=== PATIENT | female | born 2000 | race Hispanic/Latino ===

== ENCOUNTER 2021-09-22 17:18 | Emergency (ER) | payer OTHER, SELFPAY ==
[2021-09-22 19:07] LABS: Absolute Lymphocytes (CBC) 1.7 K/uL (0.7-4.9); Hematocrit 33.9 % (36.0-45.0); MPV 8.1 fL (7.6-11.3); RBC Red Blood Cell Count 4.54 M/uL (3.86-4.86)
[2021-09-22 19:12] LABS: Urine Blood Trace-intact (Negative); Urine Glucose Negative (Negative); Urine Protein Negative (Negative); Urine Specific Gravity >=1.030 (1.005-1.030)
--- NOTE | 2021-09-22 19:14 | RAD REPORT ---
EXAM DESCRIPTION: [place] Single View09/22/2021 7:02 pm CLINICAL HISTORY: Chest pain COMPARISON: none FINDINGS: The lungs appear clear of acute infiltrate. The heart is normal size IMPRESSION: No acute abnormalities displayed
[2021-09-22] MEDS ORDERED: NA CHLORIDE 0.9% 500 ML ONE (19:30)
[2021-09-22 19:45] LABS: Protime INR 1.02
[2021-09-22 19:54] LABS: ALT/SGPT 20 U/L (12-78); AST/SGOT 19 U/L (15-37); Alkaline Phosphatase 61 U/L (45-117); BUN Blood Urea Nitrogen 10 mg/dL (7-18); Bicarbonate 28 mmol/L (21-32); Bilirubin Total 0.2 mg/dL (0.2-1.0); Glucose Level 93 mg/dL (74-106); Magnesium 1.8 mg/dL (1.8-2.4); NT PRO-BNP 71 pg/mL (<125); Potassium 3.2 mmol/L (3.5-5.1); Protein, Total 8.1 g/dL (6.4-8.2); Sodium Level 137 mmol/L (136-145)
[2021-09-22 19:56] LABS: Bilirubin Direct < 0.1 mg/dL (0-0.2)
[2021-09-22 20:30] LABS: Urine Specific Gravity/Preg >1.030 (1.005-1.030)
[2021-09-22 20:57] LABS: Troponin High Sensitivity < 3.00 pg/mL (<58.9)
--- NOTE | 2021-09-22 20:59 | ER ---
Nurse's Notes [facility] Name: Denia Mathew Age: 21 yrs Sex: Female : 2000 Arrival Date: 09/22/2021 Time: 17:21 Bed 8 Private MD: Diagnosis: Chest pain, unspecified Presentation: 09/22 17:45 Chief complaint: Patient states: she started experiencing chest pain accompanied by ap3 dizziness around 1630 this afternoon. Patient also states she was feeling faint at the time this occurred. Patient denies chest pain and dizziness at this time. Coronavirus screen: At this time, the client does not indicate any symptoms associated with coronavirus-19. Ebola Screen: No symptoms or risks identified at this time. Initial Sepsis Screen: Does the patient meet any 2 criteria? No. Patient's initial sepsis screen is negative. Does the patient have a suspected source of infection? No. Patient's initial sepsis screen is negative. Risk Assessment: Do you want to hurt yourself or someone else? Patient reports no desire to harm self or others. Onset of symptoms was September 22, 2021 at 16:30. 17:45 Method Of Arrival: Wheelchair ap3 17:45 Acuity: STEVAN 3 ap3 Triage Assessment: 17:48 General: Appears in no apparent distress. Behavior is calm, cooperative. Pain: Denies ap3 pain. Neuro: Level of Consciousness is awake, alert, obeys commands, Oriented to person, place, time, situation, Appropriate for age. Cardiovascular: Patient's skin is warm and dry. Respiratory: Airway is patent Respiratory effort is even, unlabored, Respiratory pattern is regular, symmetrical. 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 - Social history:: Smoking status: Patient denies any tobacco usage or history of. Screenin:49 Abuse screen: Denies threats or abuse. Nutritional screening: No deficits noted. ap3 Tuberculosis screening: No symptoms or risk factors identified. Fall Risk None identified. No fall in past 12 months (0 pts). Assessment: 17:50 Pain: Denies pain. Pain began suddenly, an hour and a half ago, but has since resolved. ap3 18:07 Reassessment: No changes from previously documented assessment. Patient is alert, jh6 oriented x 3, equal unlabored respirations, skin warm/dry/pink. Patient denies pain at this time. Patient states feeling better. General: Appears in no apparent distress. Behavior is calm, cooperative, states that she was at work when she started having sharp chest pain and tingling to face and lips. pt states that s/s are resolve at this time. . 19:28 General: Reports " I am feeling a lot better now than when I first came in." Patient tw5 denies chest pain at this time. General: Reports " I thought I was suppose to get an IV fluids.". Neuro: Level of Consciousness is awake, alert, obeys commands, Oriented to person, place, time, situation. Cardiovascular: Patient's skin is warm and dry. Respiratory: Airway is patent Trachea midline Respiratory effort is even, unlabored. 20:21 Reassessment: Patient appears in no apparent distress at this time. Patient states as6 feeling better. Vital Signs: 17:45 BP 110 / 85; Pulse 93; Resp 17; Temp 98.6; Pulse Ox 10% ; Weight 55.79 kg; Height 5 ft. ap3 4 in. (162.56 cm); 18:08 BP 132 / 86; Pulse 98; Resp 17; Pulse Ox 100% ; Pain 0/10; jh6 19:35 BP 112 / 78; Pulse 95; Resp 14; Pulse Ox 100% on R/A; tw5 20:21 BP 101 / 72; Pulse 84; Resp 18 S; Pulse Ox 100% on R/A; as6 17:45 Body Mass Index 21.11 (55.79 kg, 162.56 cm) ap3 ED Course: 17:21 Patient arrived in ED. ds1 17:46 Triage completed. ap3 17:49 Arm band placed on right wrist. ap3 17:50 Patient maintains SpO2 saturation greater than 95% on room air. ap3 17:58 Ronaldo Ahumada PA is PHCP. [facility] 17:58 Adrian Park MD is Attending Physician. [facility] 18:06 Carmen Hickman, RN is Primary Nurse. jh6 18:09 Patient has correct armband on for positive identification. Call light in reach. Side [facility] rails up X 1. Adult w/ patient. 18:50 Inserted saline lock: 20 gauge in left antecubital area, using aseptic technique. Blood jg9 collected. 19:00 XRAY Chest (1 view) Sent. jg9 19:02 XRAY Chest (1 view) In Process Unspecified. EDMS 19:15 Urine --Ancillary (enter results) Sent. jg9 19:28 Awaiting lab results. tw5 19:28 Pulse ox on. NIBP on. Door closed. Noise minimized. Moved to private room. Warm blanket tw5 given. Verbal reassurance given. 19:28 by ED staff, sent to lab. tw5 20:41 Primary Nurse role handed off by Carmen Hickman, SHANTHI tw5 20:41 Ariane Grossman is Primary Nurse. tw5 20:58 Karan Jacobs MD is Referral Physician. [facility] 21:03 No provider procedures requiring assistance completed. IV discontinued, intact, as6 bleeding controlled, No redness/swelling at site. Pressure dressing applied. Administered Medications: 19:30 Drug: NS 0.9% 500 ml Route: IV; Rate: bolus; Site: left antecubital; tw5 20:20 Follow up: Response: No adverse reaction; IV Status: Completed infusion; IV Intake: as6 500ml Point of Care Testing: Urine : 19:14 hCG Reading: Negative; Control Reading: Positive; jg9 Intake: 20:20 IV: 500ml; Total: 500ml. as6 Outcome: 20:59 Discharge ordered by . [facility] 21:03 Discharged to home ambulatory, with significant other. as6 21:03 Condition: stable 21:03 Discharge instructions given to patient, Instructed on discharge instructions, follow up and referral plans. Demonstrated understanding of instructions, follow-up care. 21:03 Patient left the ED. as6 Signatures: Dispatcher [employer] EDMS Ronaldo Ahumada PA PA [facility] Jen Urbina ds1 Rosy Plata RN RN ap3 Ariane Grossman tw5 Abiodun Smith RN RN as6 Carmen Hickman, RN RN jh6 Carmen Sandoval, RN RN jg9 Corrections: (The following items were deleted from the chart) 17:49 17:45 Chief complaint: Patient states: she started experiencing chest pain accompanied ap3 by dizziness around 1630 this afternoon. Patient also states she was feeling faint at the time this occurred. Patient denies chest pain at this time. ap3
--- NOTE | 2021-09-22 20:59 | EDPHYS ---
Physician Documentation [facility] Name: Denia Mathew Age: 21 yrs Sex: Female : 2000 Arrival Date: 09/22/2021 Time: 17:21 Bed 8 Private MD: ED Physician Adrian Park HPI: 09/22 18:18 This 21 yrs old Female presents to ER via Wheelchair with complaints of Chest m Pain, Dizziness. 18:18 The patient or guardian reports chest pain that is located primarily in the anterior [facility] chest wall, left. The pain does not radiate. Associated signs and symptoms: Pertinent positives: dizziness, shortness of breath. The chest pain is described as sharp. Duration: The patient or guardian reports a single episode, that is still ongoing, but improving. Modifying factors: The symptoms are alleviated by nothing. the symptoms are aggravated by nothing. The patient has experienced similar episodes in the past, a few times. 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 - Social history:: Smoking status: Patient denies any tobacco usage or history of. ROS: 18:18 Constitutional: Negative for fever, chills, and weight loss. jmm 18:18 Cardiovascular: Positive for chest pain. 18:18 Respiratory: Positive for shortness of breath. 18:18 All other systems are negative. Exam: 18:18 Head/Face: atraumatic. Eyes: EOMI, no conjunctival erythema appreciated ENT: Moist jm Mucus Membranes Neck: Trachea midline, Supple Chest/axilla: Normal chest wall appearance and motion. Cardiovascular: Regular rate and rhythm. No edema appreciated Respiratory: Normal respirations, no respiratory distress appreciated Abdomen/GI: Non distended, soft Back: Normal ROM Skin: General appearance color normal MS/ Extremity: Moves all extremities, no obvious deformities appreciated, no edema noted to the lower extremities Neuro: Awake and alert Psych: Behavior is normal, Mood is normal, Patient is cooperative and pleasant 18:18 Constitutional: The patient appears alert, awake, anxious, uncomfortable. Vital Signs: 17:45 BP 110 / 85; Pulse 93; Resp 17; Temp 98.6; Pulse Ox 10% ; Weight 55.79 kg; Height 5 ft. ap3 4 in. (162.56 cm); 18:08 BP 132 / 86; Pulse 98; Resp 17; Pulse Ox 100% ; Pain 0/10; jh6 19:35 BP 112 / 78; Pulse 95; Resp 14; Pulse Ox 100% on R/A; tw5 20:21 BP 101 / 72; Pulse 84; Resp 18 S; Pulse Ox 100% on R/A; as6 17:45 Body Mass Index 21.11 (55.79 kg, 162.56 cm) ap3 MDM: 18:18 Patient medically screened. [facility] 20:58 Data reviewed: vital signs, nurses notes. Counseling: I had a detailed discussion with [facility] the patient and/or guardian regarding: the historical points, exam findings, and any diagnostic results supporting the discharge/admit diagnosis, lab results, radiology results, the need for outpatient follow up, to return to the emergency department if symptoms worsen or persist or if there are any questions or concerns that arise at home. 20:58 ED course: Patient states that she feels much better after reevaluation. Pain is [facility] completely relieved. Cardiac markers are normal. Patient advised to follow-up with cardiology due to repeated episodes along with complaints of dizziness near syncope. Patient otherwise given strict return precautions. Patient understood agrees plan of care.. 09/22 18:19 Order name: Basic Metabolic Panel; Complete Time: 21:00 [facility] 09/22 18:19 Order name: CBC with Diff; Complete Time: 19:14 [facility] 09/22 18:19 Order name: LFT's; Complete Time: 21:00 [facility] 09/22 18:19 Order name: Magnesium; Complete Time: 21:00 [facility] 09/22 18:19 Order name: NT PRO-BNP; Complete Time: 21:00 [facility] 09/22 18:19 Order name: PT-INR; Complete Time: 19:53 [facility] 09/22 18:19 Order name: Urine Dipstick-Ancillary (obtain specimen); Complete Time: 19:14 [facility] 09/22 18:19 Order name: Troponin HS; Complete Time: 21:00 [facility] 09/22 18:19 Order name: XRAY Chest (1 view); Complete Time: 19:16 [facility] 09/22 18:19 Order name: EKG; Complete Time: 18:20 [facility] 09/22 18:19 Order name: D-Dimer; Complete Time: 19:53 [facility] 09/22 19:12 Order name: Urine --Ancillary (enter results); Complete Time: 20:41 [facility] 09/22 19:13 Order name: Urine Dipstick-Ancillary; Complete Time: 19:14 [facility] 09/22 18:19 Order name: Cardiac monitoring; Complete Time: 19:00 [facility] 09/22 18:19 Order name: EKG - Nurse/Tech; Complete Time: 19:00 [facility] 09/22 18:19 Order name: IV Saline Lock; Complete Time: 19:00 [facility] 09/22 18:19 Order name: Labs collected and sent; Complete Time: 19:00 [facility] 09/22 18:19 Order name: O2 Per Protocol; Complete Time: 19:14 [facility] 09/22 18:19 Order name: O2 Sat Monitoring; Complete Time: 19:00 [facility] Administered Medications: 19:30 Drug: NS 0.9% 500 ml Route: IV; Rate: bolus; Site: left antecubital; tw5 20:20 Follow up: Response: No adverse reaction; IV Status: Completed infusion; IV Intake: as6 500ml Point of Care Testing: Urine : 19:14 hCG Reading: Negative; Control Reading: Positive; jg9 Disposition Summary: 09/22/21 20:59 Discharge Ordered Location: Home [facility] Condition: Stable [facility] Diagnosis - Chest pain, unspecified [facility] Followup: [facility] - With: Karan Jacobs MD - When: 2 - 3 days - Reason: Recheck today's complaints, Continuance of care, Re-evaluation by your physician Discharge Instructions: - Discharge Summary Sheet [facility] - Nonspecific Chest Pain, Adult [facility] Forms: - Medication Reconciliation Form [facility] - Thank You Letter [facility] - Antibiotic Education [facility] - Prescription Opioid Use [facility] Signatures: Dispatcher [employer] EDMS Ronaldo Ahumada PA PA jmm Prokisch, Amanda, RN RN ap3 Ariane Grossman tw5 Slawson, Newry RN as6
[2021-09-22 21:40] VITALS: TEMP 98.6
[2021-09-22 21:41] VITALS: O2SAT 100
[2021-09-22 21:44] VITALS: BP 101/72
--- NOTE | 2021-09-24 10:12 | EKG ---
Test Date: 2021-09-22 Test Time: 18:54:37 Test Operator: DEAN MEASUREMENT RESULTS: Intervals: Rate: 86 OH: 142 QRSD: 86 QT: 376 QTc: 449 [place]: P: 78 OH: 142 QRS: 95 T: 29 INTERPRETIVE STATEMENTS: Normal sinus rhythm with sinus arrhythmia Rightward axis Nonspecific ST abnormality Abnormal ECG No previous ECG available for comparison Electronically Signed On 09-24-21 10:11:41 CDT by Stevenson Darling
== END 2021-09-22 21:03 | disposition home or self-care (01) ==
LOC: ER 17:18
DX: R07.9 Chest pain, unspecified (principal); R42 Dizziness and giddiness; E03.9 Hypothyroidism, unspecified; F41.9 Anxiety disorder, unspecified; F32.A Depression, unspecified
CPT/HCPCS: 36415; 71045; 80048; 80076; 81003; 81025; 83735; 83880; 84484; 85025; 85379; 85610; 93005; 96360; 99284; J7040

== ENCOUNTER 2021-10-05 15:32 | Emergency (ER) | payer OTHER ==
[2021-10-05 15:58] LABS: Absolute Lymphocytes (CBC) 1.8 K/uL (0.7-4.9); Hematocrit 31.6 % (36.0-45.0); Lymphocytes % 31.3 % (15.3-44.8); MPV 7.9 fL (7.6-11.3); RBC Red Blood Cell Count 4.28 M/uL (3.86-4.86)
[2021-10-05 16:15] LABS: ALT/SGPT 18 U/L (12-78); AST/SGOT 14 U/L (15-37); Albumin 3.5 g/dL (3.4-5.0); Alkaline Phosphatase 56 U/L (45-117); BUN Blood Urea Nitrogen 11 mg/dL (7-18); Bicarbonate 27 mmol/L (21-32); Bilirubin Total 0.1 mg/dL (0.2-1.0); CKMB Creatine Kinase MB 1.6 ng/mL (1.0-3.6); Creatine Phosphokinase 115 U/L (26-192); Glucose Level 99 mg/dL (74-106); Lipase 118 U/L (73-393); Potassium 3.3 mmol/L (3.5-5.1); Protein, Total 7.4 g/dL (6.4-8.2); Sodium Level 140 mmol/L (136-145)
[2021-10-05 16:16] LABS: Bilirubin Direct < 0.1 mg/dL (0-0.2)
[2021-10-05] MEDS ORDERED: NA CHLORIDE 0.9% 1,000 ML ONE (16:22)
[2021-10-05 16:28] LABS: Protime INR 1.05
[2021-10-05] MEDS ORDERED: POTASSIUM CL SA 10 MEQ TAB PO ONE (16:31)
[2021-10-05 16:58] LABS: Urine Blood Negative (Negative); Urine Glucose Negative (Negative); Urine Protein Negative (Negative); Urine Specific Gravity >=1.030 (1.005-1.030)
[2021-10-05 17:14] LABS: Urine Appearance Clear (Clear); Urine Bilirubin Negative (Negative); Urine Blood Negative (Negative); Urine Color Yellow (Yellow); Urine Glucose Negative (Negative); Urine Protein Negative (Negative); Urine Specific Gravity 1.025 (1.005-1.030); Urine Urobilinogen 0.2 mg/dL (0.2-1.0)
[2021-10-05 17:14] LABS: Urine Specific Gravity/Preg >1.030 (1.005-1.030)
[2021-10-05 17:18] LABS: Urine Microscopic Reflex NO UMIC
--- NOTE | 2021-10-05 17:23 | ER ---
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 Bounding pulse 110's upon arrival. BP stable. LMP: September 13. Coronavirus screen: Vaccine status: Patient reports receiving the 2nd dose of the covid vaccine. Client denies travel out of the [place] in the last 14 days. At this time, the client does not indicate any symptoms associated with coronavirus-19. Ebola Screen: Patient denies travel to an Ebola-affected area in the 21 days before illness onset. Initial Sepsis Screen: Does the patient meet any 2 criteria? No. Patient's initial sepsis screen is negative. Does the patient have a suspected source of infection? No. Patient's initial sepsis screen is negative. Risk Assessment: Do you want to hurt yourself or someone else? Patient reports no desire to harm self or others. Onset of symptoms was October 05, 2021. 15:44 Method Of Arrival: EMS: [facility] 1 15:44 Acuity: STEVAN 3 ll1 Triage Assessment: 15:47 General: Appears in no apparent distress. Behavior is calm, cooperative, appropriate ll1 for age. Pain: Denies pain. Neuro: Reports dizziness, a syncopal episode weakness. Cardiovascular: No deficits noted. Respiratory: No deficits noted. 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 - Social history:: Smoking status: Patient denies any tobacco usage or history of. Screenin:10 Abuse screen: Denies threats or abuse. Denies injuries from another. Nutritional ww screening: No deficits noted. Tuberculosis screening: No symptoms or risk factors identified. Fall Risk None identified. Assessment: 16:10 General: Appears in no apparent distress. comfortable, Behavior is cooperative. Pain: ww Denies pain. Neuro: Level of Consciousness is awake, alert, obeys commands, Oriented to person, place, time, situation, Moves all extremities. Speech is normal, Facial symmetry appears normal. Cardiovascular: Capillary refill < 3 seconds Patient's skin is warm and dry. Rhythm is regular Chest pain is denied. Respiratory: Airway is patent Respiratory effort is even, unlabored, Respiratory pattern is regular, symmetrical. GI: Abdomen is non-distended, Patient currently denies constipation, diarrhea, nausea, vomiting. Derm: Skin is intact, is healthy with good turgor. 17:19 Reassessment: Patient appears in no apparent distress at this time. No changes from previously documented assessment. Patient and/or family updated on plan of care and expected duration. Pain level reassessed. Patient is alert, oriented x 3, equal unlabored respirations, skin warm/dry/pink. Vital Signs: 15:44 Weight 54.43 kg; Height 5 ft. 4 in. (162.56 cm); Pain 0/10; ll1 17:19 BP 101 / 69; Pulse 88; Resp 16; Pulse Ox 100% on R/A; ww 15:44 Body Mass Index 20.60 (54.43 kg, 162.56 cm) ll1 ED Course: 15:44 Patient arrived in ED. ll1 15:44 Umberto Barbour PA [facility] jr8 15:46 Triage completed. ll1 15:47 Arm band placed on Patient placed in an exam room, on a stretcher. ll1 15:53 Christine Grossman RN is Primary Nurse. ww 15:53 Basic Metabolic Panel Sent. ww 16:10 Patient has correct armband on for positive identification. Bed in low position. Call ww light in reach. Side rails up X 1. Adult w/ patient. monitor technician on. Pulse ox on. NIBP on. 16:10 EKG done. Maintain EMS IV. Dressing intact. Good blood return noted. Site clean \T\ dry. ww Gauge \T\ site: 20g right ac. 16:14 Adrian Park MD is Attending Physician. jr8 16:27 Glucose, Ancillary Testing Sent. ww 17:22 Stevenson Darling MD is Referral Physician. jr8 17:39 No provider procedures requiring assistance completed. IV discontinued, bleeding ww controlled, No redness/swelling at site. Pressure dressing applied. Administered Medications: 16:25 Drug: NS 0.9% 1000 ml Route: IV; Rate: 1000 ml; Site: right antecubital; ww 16:34 Drug: Potassium Chloride 40 mEq Route: PO; ww Outcome: 17:23 Discharge ordered by . jr8 17:39 Discharged to home ambulatory. ww 17:39 Condition: stable 17:39 Discharge instructions given to patient, Instructed on discharge instructions, follow up and referral plans. safety practices, Demonstrated understanding of instructions, follow-up care, medications. 17:52 Patient left the ED. ww Signatures: Umberto Barbour PA PA jr8 Ramon Conroy, RN RN 1 Christine Grossman RN RN ww
--- NOTE | 2021-10-05 17:23 | EDPHYS ---
Physician Documentation [facility] Name: Denia Mathew Age: 21 yrs Sex: Female : 2000 Arrival Date: 10/05/2021 Time: 15:44 Bed 6 Private MD: ED Physician Adrian Park HPI: 10/05 16:02 This 21 yrs old Female presents to ER via EMS with complaints of Dizziness. jr8 16:02 The patient presents with feeling faint. Onset: The symptoms/episode began/occurred jr8 suddenly. Context: occurred at work, occurred while the patient was sitting. Associated signs and symptoms: Pertinent positives: headache, near-syncope, numbness, shortness of breath. Severity of symptoms:. Patient's baseline: Neuro: alert and fully oriented, Motor: no deficits, Speech: normal. The patient has experienced similar episodes in the past. 16:29 21-year-old female presents to the ER complaining of near syncope, dizziness, and jr8 headache. She reports a history of hypothyroidism, depression, asthma, and an irregular heartbeat that she never followed up with.. [employer]: 17:40 LMP 09/13/2021 ww Historical: - Allergies: 15:46 No Known Allergies; ll1 - PMHx: 15:46 Anxiety; Asthma; depressive disorder; Hypothyroidism; ll1 - PSHx: 15:46 None; ll1 - Immunization history:: Client reports receiving the 2nd dose of the Covid vaccine. - Social history:: Smoking status: Patient denies any tobacco usage or history of. ROS: 16:05 Respiratory: Negative for shortness of breath. jr8 16:06 Cardiovascular: Negative for chest pain. jr8 16:06 Abdomen/GI: Negative for abdominal pain, nausea, vomiting, and diarrhea. 16:06 Neuro: Positive for dizziness, headache, Negative for loss of consciousness. 16:29 Constitutional: Negative for fever, chills, and weight loss. jr8 16:29 All other systems are negative. Exam: 16:29 Constitutional: This is a well developed, well nourished patient who is awake, alert, jr8 and in no acute distress. Eyes: Pupils equal round and reactive to light, extra-ocular motions intact. Lids and lashes normal. Conjunctiva and sclera are non-icteric and not injected. Cornea within normal limits. Periorbital areas with no swelling, redness, or edema. ENT: Nares patent. No nasal discharge, no septal abnormalities noted. Tympanic membranes are normal and external auditory canals are clear. Oropharynx with no redness, swelling, or masses, exudates, or evidence of obstruction, uvula midline. Mucous membranes moist. Neck: Trachea midline, no thyromegaly or masses palpated, and no cervical lymphadenopathy. Supple, full range of motion without nuchal rigidity, or vertebral point tenderness. No Meningismus. Cardiovascular: Regular rate and rhythm with a normal S1 and S2. No gallops, murmurs, or rubs. Normal PMI, no JVD. No pulse deficits. Respiratory: Lungs have equal breath sounds bilaterally, clear to auscultation and percussion. No rales, rhonchi or wheezes noted. No increased work of breathing, no retractions or nasal flaring. Abdomen/GI: Soft, non-tender, with normal bowel sounds. No distension or tympany. No guarding or rebound. No evidence of tenderness throughout. Back: No spinal tenderness. No costovertebral tenderness. Full range of motion. Skin: Warm, dry with normal turgor. Normal color with no rashes, no lesions, and no evidence of cellulitis. MS/ Extremity: Pulses equal, no cyanosis. Neurovascular intact. Full, normal range of motion. Neuro: Awake and alert, GCS 15, oriented to person, place, time, and situation. Cranial nerves II-XII grossly intact. Motor strength 5/5 in all extremities. Sensory grossly intact. Cerebellar exam normal. 16:29 ECG was reviewed by the Attending Physician. Vital Signs: 15:44 Weight 54.43 kg; Height 5 ft. 4 in. (162.56 cm); Pain 0/10; ll1 17:19 BP 101 / 69; Pulse 88; Resp 16; Pulse Ox 100% on R/A; ww 15:44 Body Mass Index 20.60 (54.43 kg, 162.56 cm) ll1 MDM: 16:29 Patient medically screened. [facility] 16:29 Data reviewed: vital signs, nurses notes, lab test result(s), EKG. Data interpreted: [facility] Pulse oximetry: on room air is 98 %. Interpretation: normal. Counseling: I had a detailed discussion with the patient and/or guardian regarding: the historical points, exam findings, and any diagnostic results supporting the discharge/admit diagnosis, lab results, the need for outpatient follow up, a family practitioner, to return to the emergency department if symptoms worsen or persist or if there are any questions or concerns that arise at home. Response to treatment: the patient's symptoms have resolved after treatment, patient is well hydrated. ED course: The patient remained hemodynamically stable throughout her ED visit. Her labs had no significant findings. Her symptoms improved after she received IV fluids. She was instructed to return to the ED if her symptoms returned, or she developed any new concerning symptoms. She was advised to follow-up with her PCP. The patient understands the plan of care, and agreed to return for worsening symptoms.. 10/05 15:52 Order name: Basic Metabolic Panel; Complete Time: 16:10/05 15:52 Order name: CBC with Diff; Complete Time: 16:10/05 15:52 Order name: CPK; Complete Time: 16:10/05 15:52 Order name: Ckmb; Complete Time: 16:10/05 15:52 Order name: Hepatic Function; Complete Time: 16:10/05 15:52 Order name: Lipase; Complete Time: 16:10/05 15:52 Order name: Magnesium; Complete Time: 16:10/05 15:52 Order name: Protime (+inr); Complete Time: 17:10/05 15:52 Order name: Ptt, Activated; Complete Time: 17:10/05 16:16 Order name: Glucose, Ancillary Testing; Complete Time: 16: EDIA 10/05 16:18 Order name: Glucose, Ancillary Testing [facility] 10/05 16:58 Order name: Urine Dipstick-Ancillary; Complete Time: 17: EDIA 10/05 16:59 Order name: Urine --Ancillary (enter results); Complete Time: 17: em1 10/05 15:52 Order name: EKG; Complete Time: 15: ww 10/05 15:52 Order name: Cardiac monitoring; Complete Time: 15: ww 10/05 15:52 Order name: EKG - Nurse/Tech; Complete Time: 15:10/05 15:52 Order name: IV Saline Lock; Complete Time: 15:54 10/05 15:52 Order name: Labs collected and sent; Complete Time: 15:54 10/05 15:52 Order name: NPO; Complete Time: 15:54 10/05 15:52 Order name: O2 Per Protocol; Complete Time: 15:54 10/05 15:52 Order name: O2 Sat Monitoring; Complete Time: 15:54 10/05 15:52 Order name: Urine Dipstick-Ancillary (obtain specimen); Complete Time: 17:18 10/05 15:53 Order name: Urine Dipstick-Ancillary (obtain specimen); Complete Time: 16:58 10/05 15:59 Order name: Urine Test (obtain specimen); Complete Time: 16:58 10/05 17:14 Order name: Urinalysis; Complete Time: 17:23 EDMS EC:29 Rate is 93 beats/min. Rhythm is regular, Normal Sinus Rhythm. QRS [place] is Normal. TN jr8 interval is normal at 144 msec. QRS interval is normal at 84 msec. QT interval is normal at 472 msec. No Q waves. T waves are Inverted in lead V1. No ST changes noted. Clinical impression: NSR w/ Non-specific ST/T Changes. Interpreted by me. Reviewed by me. Administered Medications: 16:25 Drug: NS 0.9% 1000 ml Route: IV; Rate: 1000 ml; Site: right antecubital; ww 16:34 Drug: Potassium Chloride 40 mEq Route: PO; ww Disposition: 18:40 Co-signature as Attending Physician, Adrian Park MD I agree with the assessment and kdr plan of care. Disposition Summary: 10/05/21 17:23 Discharge Ordered Location: Home jr8 Problem: new jr8 Symptoms: have improved jr8 Condition: Stable jr8 Diagnosis - Dizziness and giddiness jr8 - Hypokalemia jr8 Followup: jr8 - With: Stevenson Darling MD - When: 5 - 6 days - Reason: Recheck today's complaints, Continuance of care, Re-evaluation by your physician Discharge Instructions: - Discharge Summary Sheet jr8 - Potassium Content of Foods jr8 - Dizziness jr8 Forms: - Medication Reconciliation Form jr8 - Thank You Letter jr8 - Antibiotic Education jr8 - Prescription Opioid Use jr8 Signatures: Dispatcher [employer] EDMS Adrian Park MD MD [facility] Umberto Barbour PA PA 8 Ramon Conroy, RN RN 1 Christine Grossman RN RN ww Corrections: (The following items were deleted from the chart) 16:32 16:05 Constitutional: [place] [id number] 16:35 16:07 Constitutional: This is a well developed, well nourished patient who is awake, jr8 alert, and in no acute distress. [facility] 16:35 16:07 Cardiovascular: Exam negative for acute changes, 8 8 16:35 16:07 Respiratory: Exam negative for Breath sounds: are clear throughout, 8 8 16:35 16:07 Respiratory: [place] [id number] 16:35 16:07 Abdomen/GI: Palpation: abdomen is soft and non-tender, 8 [facility] 16:35 16:07 Neuro: Orientation: is normal, 8 [facility] 16:35 16:15 Neuro: Mentation: is normal, Motor: is normal, Sensation: is normal, [place] [id number] 17:20 15:59 URINALYSIS+U.LAB.BRZ ordered. EDMS EDMS
[2021-10-05 19:01] VITALS: BP 101/69; O2SAT 100
== END 2021-10-05 17:52 | disposition home or self-care (01) ==
LOC: ER 15:32
DX: E87.6 Hypokalemia (principal); R51.9 Headache, unspecified; E03.9 Hypothyroidism, unspecified
CPT/HCPCS: 93005; 85025; 80048; 36415; 83735; 82550; 81025; 85610; 82947; 80076; 85730; 81003 ×2; 82553; 83690; 99284; J7030